=== PATIENT | male | born 1950 | race Caucasian/White ===

== ENCOUNTER 2024-05-20 08:26 | Inpatient (IN) | payer MEDICARE ==
[2024-05-20 08:39] LABS: Glucose,Whole Blood 168 mg/dL (70-110)
--- NOTE | 2024-05-20 08:54 | ED ---
Nausea/Vomiting/Diarrhea HPI - General Chief complaint: Nausea/Vomiting/Diarrhea Stated complaint: DKA Time Seen by Provider: 05/20/24 08:29 Source: patient, EMS, RN notes reviewed Mode of arrival: EMS Limitations: no limitations - History of Present Illness Initial comments: 73-year-old male presents emergency department via EMS from [place] as a t ransfer for DKA. Patient states has been sick over the last several days with nausea vomiting. He states that started after increasing his Mounjaro. Patient states that he has had several episodes of emesis just last 24 hours. He still has mild nausea. He was given fluid bolus, insulin drip at outside facility. Patient had a pH of 7.14, patient's current glucoses below 200. Patient states he does feel somewhat improved. He denies any chest pain palpitations headache or dizziness currently. Patient states he is very thirsty. He reports no fevers. - Related Data Allergies Allergy/AdvReac Type Severity Reaction Status Date / Time codeine Allergy Rash/Hives Verified 05/20/24 08:41 Review of Systems ROS Statement: Those systems with pertinent positive or pertinent negative responses have been documented in the HPI. ROS Other: All systems not noted in ROS Statement are negative. Past Medical History Past Medical History: Diabetes Mellitus, Hyperlipidemia, Hypertension History of Any Multi-Drug Resistant Organisms: None Reported Past Surgical History: No Surgical Hx Reported Past Psychological History: No Psychological Hx Reported Smoking Status: Former smoker Past Alcohol Use History: Rare Past Drug Use History: None Reported General Exam Limitations: no limitations General appearance: alert, in no apparent distress Head exam: Present: atraumatic, normocephalic, normal inspection Eye exam: Present: normal appearance, PERRL, EOMI. Absent: scleral icterus, conjunctival injection, periorbital swelling ENT exam: Present: mucous membranes dry. Absent: normal exam, mucous membranes moist Neck exam: Present: normal inspection, full ROM. Absent: tenderness, meningismus, lymphadenopathy Respiratory exam: Present: normal lung sounds bilaterally. Absent: respiratory distress, wheezes, rales, rhonchi, stridor Cardiovascular Exam: Present: normal rhythm, tachycardia, normal heart sounds. Absent: systolic murmur, diastolic murmur, rubs, gallop, clicks GI/Abdominal exam: Present: soft, normal bowel sounds. Absent: distended, tenderness, guarding, rebound, rigid Neurological exam: Present: alert, oriented X3 Skin exam: Present: warm, dry, intact, normal color. Absent: rash Course Vital Signs 05/20/24 05/20/24 05/20/24 08:29 09:00 09:30 Temperature 98.0 F Pulse Rate 122 H 105 H Respiratory 18 18 18 Rate Blood Pressure 136/81 136/81 118/64 O2 Sat by Pulse 96 Oximetry 05/20/24 05/20/24 05/20/24 10:00 10:30 11:00 Temperature Pulse Rate 118 H 115 H 115 H Respiratory 18 18 18 Rate Blood Pressure 104/72 110/71 108/72 O2 Sat by Pulse Oximetry 05/20/24 11:30 Temperature Pulse Rate 106 H Respiratory 18 Rate Blood Pressure 91/68 O2 Sat by Pulse Oximetry Medical Decision Making - Medical Decision Making Was pt. sent in by a medical professional or institution (, PA, SUPERVISOR MIXING, urgent care, hospital, or fci...) When possible be specific @ -[facility] Did you speak to anyone other than the patient for history (EMS, parent, family, police, friend...)? What history was obtained from this source @ -No Did you review nursing and triage notes (agree or disagree)? Why? @ -I reviewed and agree with nursing and triage notes Were old charts reviewed (outside hosp., previous admission, EMS record, old EKG, old radiological studies, urgent care reports/EKG's, fci records)? Report findings @ -Reviewed labs from outpatient hospital Differential Diagnosis (chest pain, altered mental status, abdominal pain women, abdominal pain men, vaginal bleeding, weakness, fever, dyspnea, syncope, headache, dizziness, GI bleed, back pain, seizure, CVA, palpatations, mental health, musculoskeletal)? @ -Hyperglycemia, DKA, HHS, nausea vomiting EKG interpreted by me (3pts min.). @ -As above X-rays interpreted by me (1pt min.). @ -None done CT interpreted by me (1pt min.). @ -None done U/S interpreted by me (1pt. min.). @ -None done What testing was considered but not performed or refused? (CT, X-rays, U/S, labs)? Why? @ -None What meds were considered but not given or refused? Why? @ -None Did you discuss the management of the patient with other professionals (yaritza valeriofessmagalys i.e. , PA, SUPERVISOR MIXING, lab, RT, psych nurse, social media senior associate, wet primer powder blender, teacher, air defence officer, foster care case manager)? Give summary @ -Sound physician for admission Was smoking cessation discussed for >3mins.? @ -No Was critical care preformed (if so, how long)? @ -35 mins Were there social determinants of health that impacted care today? How? (Homelessness, low income, unemployed, alcoholism, drug addiction, transportation, low edu. Level, literacy, decrease access to med. care, senior care, rehab)? @ -No Was there de-escalation of care discussed even if they declined (Discuss DNR or withdrawal of care, Hospice)? DNR status @ -No What co-morbidities impacted this encounter? (DM, HTN, Smoking, COPD, CAD, Cancer, CVA, ARF, Chemo, Hep., AIDS, mental health diagnosis, sleep apnea, morbid obesity)? @ -Diabetes Was patient admitted / discharged? Hospital course, mention meds given and route, prescriptions, significant lab abnormalities, going to OR and other pertinent info. @ -Admitted patient presented from outside hospital for DKA. Patient had blood gases 7.14 acetone positive with hyperglycemia started on DKA protocol. Patient will continue on insulin, maintenance fluids and repeat laboratory studies every 4 hours. Undiagnosed new problem with uncertain prognosis? @ -No Drug Therapy requiring intensive monitoring for toxicity (Heparin, Nitro, Insulin, Cardizem)? @ -No Were any procedures done? @ -No Diagnosis/symptom? @ -DKA, nausea vomiting Acute, or Chronic, or Acute on Chronic? @ -Acute Uncomplicated (without systemic symptoms) or Complicated (systemic symptoms)? @ -Complicated Side effects of treatment? @ -No Exacerbation, Progression, or Severe Exacerbation? @ -No Poses a threat to life or bodily function? How? (Chest pain, [place], [place], pneumonia, PE, COPD, DKA, ARF, appy, cholecystitis, CVA, Diverticulitis, Homicidal, Suicidal, threat to staff... and all critical care pts) @ -Yes DKA - Lab Data Result diagrams: 05/20/24 09:27 05/20/24 11:11 Lab Results 05/20/24 05/20/24 05/20/24 Range/Units 08:37 09:27 09:27 WBC 18.6 H (3.8-10.6) k/uL RBC 5.06 (4.30-5.90) m/uL Hgb 15.8 (13.0-17.5) gm/dL Hct 51.5 (39.0-53.0) % MCV 101.8 H (80.0-100.0) fL MCH 31.2 (25.0-35.0) pg MCHC 30.7 L (31.0-37.0) g/dL RDW 13.0 (11.5-15.5) % Plt Count 264 (150-450) k/uL MPV 9.5 Neutrophils % (Manual) 79 % Band Neuts % (Manual) 3 % Lymphocytes % (Manual) 7 % Monocytes % (Manual) 6 % Eosinophils % (Manual) 3 % Metamyelocytes % 3 % Neutrophils # (Manual) 15.20 H (1.3-7.7) k/uL Lymphocytes # (Manual) 1.30 (1.0-4.8) k/uL Monocytes # (Manual) 1.12 H (0-1.0) k/uL Eosinophils # (Manual) 0.56 (0-0.7) k/uL Metamyelocytes # (Man) 0.56 H (0) k/uL Nucleated RBCs 0 (0-0) /100 WBC Manual Slide Review Performed Hypochromasia Slight Macrocytosis Slight Sodium 117 L* (137-145) mmol/L Potassium 10.4 H* (3.5-5.1) mmol/L Chloride 105 (98-107) mmol/L Carbon Dioxide 10 L (22-30) mmol/L Anion Gap 2 mmol/L BUN 11 (9-20) mg/dL Creatinine 0.69 (0.66-1.25) mg/dL Est GFR (CKD-EPI)AfAm >90 (>60 ml/min/1.73 sqM) Est GFR (CKD-EPI)NonAf >90 (>60 ml/min/1.73 sqM) Glucose 1245 H* (74-99) mg/dL POC Glucose (mg/dL) 168 H (70-110) mg/dL POC Glu Quencher Operator ID Leon Eden Calcium 5.3 L* (8.4-10.2) mg/dL Total Bilirubin 0.2 (0.2-1.3) mg/dL AST 10 L (17-59) U/L ALT 6 (4-49) U/L Alkaline Phosphatase 43 (38-126) U/L Total Protein 3.0 L (6.3-8.2) g/dL Albumin 1.5 L (3.5-5.0) g/dL 05/20/24 05/20/24 05/20/24 Range/Units 09:52 11:08 11:11 WBC (3.8-10.6) k/uL RBC (4.30-5.90) m/uL Hgb (13.0-17.5) gm/dL Hct (39.0-53.0) % MCV (80.0-100.0) fL MCH (25.0-35.0) pg MCHC (31.0-37.0) g/dL RDW (11.5-15.5) % Plt Count (150-450) k/uL MPV Neutrophils % (Manual) % Band Neuts % (Manual) % Lymphocytes % (Manual) % Monocytes % (Manual) % Eosinophils % (Manual) % Metamyelocytes % % Neutrophils # (Manual) (1.3-7.7) k/uL Lymphocytes # (Manual) (1.0-4.8) k/uL Monocytes # (Manual) (0-1.0) k/uL Eosinophils # (Manual) (0-0.7) k/uL Metamyelocytes # (Man) (0) k/uL Nucleated RBCs (0-0) /100 WBC Manual Slide Review Hypochromasia Macrocytosis Sodium 134 L (137-145) mmol/L Potassium 3.9 (3.5-5.1) mmol/L Chloride 105 (98-107) mmol/L Carbon Dioxide 21 L (22-30) mmol/L Anion Gap 8 mmol/L BUN 16 (9-20) mg/dL Creatinine 0.98 (0.66-1.25) mg/dL Est GFR (CKD-EPI)AfAm >90 (>60 ml/min/1.73 sqM) Est GFR (CKD-EPI)NonAf 78 (>60 ml/min/1.73 sqM) Glucose 223 H (74-99) mg/dL POC Glucose (mg/dL) 203 H 195 H (70-110) mg/dL POC Glu Quencher Operator ID Leon Olivo Calcium 8.5 (8.4-10.2) mg/dL Total Bilirubin (0.2-1.3) mg/dL AST (17-59) U/L ALT (4-49) U/L Alkaline Phosphatase (38-126) U/L Total Protein (6.3-8.2) g/dL Albumin (3.5-5.0) g/dL - EKG Data -: EKG Interpreted by Me EKG Comments: EKG performed at 11: 05 sinus tachycardia rate of 114 [place] 139 QRS 88 QT/QTc 349/ 416 oh Critical Care Time Critical Care Time: Yes Total Critical Care Time: 35 Disposition Clinical Impression: DKA (diabetic ketoacidosis), Nausea & vomiting Disposition: ADMITTED IP TO THIS HOSP Referrals: Aleksandar Allen MD [Primary Care Provider] - 1-2 days Time of Disposition: 11:59
[2024-05-20] MEDS: ONDANSETRON 4 MG/2 ML VIAL IVP STA (09:09)
[2024-05-20] MEDS: INSULIN REGULAR 100 UNIT in SODIUM CHLORIDE 0.9% 100 ML IV SCH (09:10)
[2024-05-20] MEDS: D5-0.45% NACL WITH KCL 20MEQ/L 1,000 ML IV SCH (09:20)
[2024-05-20 09:53] LABS: Glucose,Whole Blood 203 mg/dL (70-110)
[2024-05-20 09:58] LABS: HCT 51.5 % (39.0-53.0); HGB 15.8 gm/dL (13.0-17.5); Hypochromasia Slight; MCH 31.2 pg (25.0-35.0); MCHC 30.7 g/dL (31.0-37.0); MCV 101.8 fL (80.0-100.0); Macrocytosis Slight; Mean Platelet Volume 9.5; Platelet Count 264 k/uL (150-450); RBC 5.06 m/uL (4.30-5.90); WBC 18.6 k/uL (3.8-10.6)
[2024-05-20 10:13] LABS: ALT 6 U/L (4-49); AST 10 U/L (17-59); African American GFR (CKD) >90 (>60 ml/min/1.73 sqM); Albumin 1.5 g/dL (3.5-5.0); Alkaline Phosphatase 43 U/L (38-126); Anion Gap 2 mmol/L; Blood Urea Nitrogen 11 mg/dL (9-20); Carbon Dioxide 10 mmol/L (22-30); Chloride 105 mmol/L (98-107); Non-African American GFR(CKD) >90 (>60 ml/min/1.73 sqM); Total Bilirubin 0.2 mg/dL (0.2-1.3)
[2024-05-20] MEDS: METOCLOPRAMIDE 5 MG/ML 2 ML VIAL IVP STA (10:28)
[2024-05-20 10:44] LABS: Band Neutrophils % 3 %; Eosinophils # (M) 0.56 k/uL (0-0.7); Metamyelocytes # (M) 0.56 k/uL (0); Metamyelocytes % 3 %; Monocytes # (M) 1.12 k/uL (0-1.0); Neutrophils % (M) 79 %; Nucleated Red Blood Cells 0 /100 WBC (0-0); Total Cells Counted 200
[2024-05-20 10:53] LABS: Calcium 5.3 mg/dL (8.4-10.2); Potassium 10.4 mmol/L (3.5-5.1); Sodium 117 mmol/L (137-145)
[2024-05-20 10:54] LABS: Glucose 1245 mg/dL (74-99)
[2024-05-20 11:12] LABS: Glucose,Whole Blood 195 mg/dL (70-110)
[2024-05-20 11:45] LABS: African American GFR (CKD) >90 (>60 ml/min/1.73 sqM); Anion Gap 8 mmol/L; Blood Urea Nitrogen 16 mg/dL (9-20); Calcium 8.5 mg/dL (8.4-10.2); Carbon Dioxide 21 mmol/L (22-30); Chloride 105 mmol/L (98-107); Glucose 223 mg/dL (74-99); Non-African American GFR(CKD) 78 (>60 ml/min/1.73 sqM); Potassium 3.9 mmol/L (3.5-5.1); Sodium 134 mmol/L (137-145)
[2024-05-20 12:35] LABS: Glucose,Whole Blood 199 mg/dL (70-110)
[2024-05-20 13:36] LABS: African American GFR (CKD) 86 (>60 ml/min/1.73 sqM); Anion Gap 5 mmol/L; Blood Urea Nitrogen 17 mg/dL (9-20); Carbon Dioxide 22 mmol/L (22-30); Chloride 106 mmol/L (98-107); Glucose 206 mg/dL (74-99); Non-African American GFR(CKD) 75 (>60 ml/min/1.73 sqM); Potassium 3.7 mmol/L (3.5-5.1); Sodium 133 mmol/L (137-145)
[2024-05-20] MEDS: INSULIN NPH 100 UNIT/ML 10 ML VIAL SQ ONE (14:56)
[2024-05-20 14:57] LABS: Glucose,Whole Blood 156 mg/dL (70-110)
--- NOTE | 2024-05-20 15:24 | P.HPIM ---
History of Present Illness H&P Date: 05/20/24 Patient is a 73-year-old male with [id number] diabetes, hypertension and hyperlipidemia who came in from [facility] for nausea vomiting and diarrhea. Patient reported on Wednesday, he was given an injection of Mounjaro 0.5 mg by his PCP. On Thursday 05/17, he began to have nausea and vomiting with multiple episodes each day that was watery and contained undigested food. He also had associated nonbloody diarrhea. He denied fevers, chills, sweats, hematemesis, hematochezia, polyuria, dysuria, hematuria, shortness of breath, cough, chest pain, abdominal pain, recent travel, or recent sick contacts. On 05/18 he sought care in the [facility] emergency department and was given Zofran and Imodium and sent home. However his symptoms did not improve and his loose stools have increased in frequency. Today, he returned to their emergency department for reevaluation and was determined to have DKA which prompted transfer to our institution for higher level of care. In our ED, EKG shows ventricular tachycardia with a rate of [address]-T changes good R wave progression QTc at 416 MS. Labs from [facility], show glucose 369 BUN 17 creatinine 1.2 anion gap elevated at 28 calcium 9.4 sodium 134 potassium 3.6 chloride 99 albumin 3.6 serum acetone positive lipase low at 11 WBC elevated at 15.4 hemoglobin elevated at 19.2 hematocrit elevated at 15.6 platelets 278,000. Urinalysis shows plus for ketones large acetones trace blood 1-2 RBCs negative leukocyte esterase. Influenza, RSV, and COVID were negative venous blood pH is 7.16 which is decreased. Labs from our ED, show WBC 18.6 hemoglobin 15.8 MCV 101.8 platelet count 264,000 sodium 134 potassium 3.9 chloride 105 bicarb 21 anion gap 8 BUN 16 creatinine 0.98 glucose 273 calcium 8.5 phosphorus 2.8 On admission to our ED, patient was afebrile at 98 pulse rate 122 respiratory rate 18 blood pressure 136/81 oxygen saturation 96% at room air Review of systems: Pertinent positives and negatives as discussed in HPI, a complete review of systems was performed and all other systems are negative. Physical examination: Vital signs reviewed General: non toxic, no distress Derm: no unusual rashes/lesions, warm Head: atraumatic, normocephalic, symmetric Eyes: EOMI, anicteric sclera, pupils equal round reactive to light ENT: Nose and ears atraumatic Neck: No cervical lymphadenopathy, trachea midline, supple Mouth: no lip lesion, mucus membranes somewhat dry Cardiovascular: S1S2 reg, no murmur Lungs: CTA bilateral, no rhonchi, no rales, no accessory muscle use Abdominal: soft, nondistended, nontender to palpation, no guarding Ext: no gross muscle atrophy, no contractures, positive dorsalis pedis pulse bilateral, no extremity edema Neuro: CN II-XI grossly intact, no gross focal neuro deficits Psych: Alert and oriented x 3, appropriate affect and mood Assessment/Plan: 73-year-old male with [id number] diabetes (on Mounjaro) transferred from [facility] transferred here for higher level of care. #. Diabetic ketoacidosis #. Pseudohyponatremia #. Leukocytosis likely reactive due to above r/o infection IV insulin and D5 half-normal saline at 150 cc/h initiated in the ED Per protocol, continue IV insulin until anion gap is is normal. Transition to subcutaneous insulin after 1 hour Zofran 4 mg IVP and Reglan 10 mg IVP for nausea WBC elevated at 18.6 neutrophils elevated at 15.2 Accu-Chek checks hourly BMP and Phos every 4 hours Blood cultures from 2 sites CBC and BMP in the a.m. Cardiac monitoring Chronic Conditions: #. Hypertension #. Hyperlipidemia Resume Lipitor 10 mg p.o. and lisinopril 20 mg p.o., F: D5 half-normal saline at 150 cc E: Replete as needed N: N.p.o. for now A: Can ambulate independently DVT ppx: Lovenox 40 mg SQ daily Dispo: The patient is admitted with an anticipated less than 2 midnight stay for evaluation of DKA Discussed with: Patient and patient's Anticipated discharge place: Home Vivi Lincoln MD PGY-1 IM Dictation was produced using [employer] dictation software. please excuse any grammatical, word or spelling errors. I have seen and evaluated the patient today. Discussed with the resident and agree with the residents finding and plan as documented in the resident's note. Changes highlighted in blue font. Past Medical History Past Medical History: Diabetes Mellitus, Hyperlipidemia, Hypertension History of Any Multi-Drug Resistant Organisms: None Reported Past Surgical History: No Surgical Hx Reported Past Psychological History: No Psychological Hx Reported Smoking Status: Former smoker Past Alcohol Use History: Rare Past Drug Use History: None Reported Medications and Allergies Home Medications Medication Instructions Recorded Confirmed Type Ondansetron Odt [Zofran Odt] 4 mg PO Q4-6H PRN 05/20/24 05/20/24 History Simvastatin [Zocor] 20 mg PO HS 05/20/24 05/20/24 History glipiZIDE [Glucotrol] 10 mg PO HS 05/20/24 05/20/24 History lisinopriL [Zestril] 20 mg PO HS 05/20/24 05/20/24 History metFORMIN HCL 1,000 mg PO BID 05/20/24 05/20/24 History Allergies Allergy/AdvReac Type Severity Reaction Status Date / Time codeine Allergy Rash/Hives/ Verified 05/20/24 13:42 Nausea/Vomi ting Physical Exam Vitals: Vital Signs Temp Pulse Resp BP Pulse Ox 05/20/24 11:30 106 H 18 91/68 05/20/24 11:00 115 H 18 108/72 05/20/24 10:30 115 H 18 110/71 05/20/24 10:00 118 H 18 104/72 05/20/24 09:30 105 H 18 118/64 05/20/24 09:00 18 136/81 05/20/24 08:29 98.0 F 122 H 18 136/81 96 Intake and Output 05/19/24 05/20/24 05/20/24 22:59 06:59 14:59 Other: Weight 81.647 kg Results CBC & Chem 7: 05/20/24 09:27 05/20/24 12:29 Labs: Abnormal Lab Results - Last 24 Hours (Table) 05/20/24 05/20/24 05/20/24 Range/Units 08:37 09:27 09:27 WBC 18.6 H (3.8-10.6) k/uL MCV 101.8 H (80.0-100.0) fL MCHC 30.7 L (31.0-37.0) g/dL Neutrophils # (Manual) 15.20 H (1.3-7.7) k/uL Monocytes # (Manual) 1.12 H (0-1.0) k/uL Metamyelocytes # (Man) 0.56 H (0) k/uL Sodium 117 L* (137-145) mmol/L Potassium 10.4 H* (3.5-5.1) mmol/L Carbon Dioxide 10 L (22-30) mmol/L Glucose 1245 H* (74-99) mg/dL POC Glucose (mg/dL) 168 H (70-110) mg/dL Calcium 5.3 L* (8.4-10.2) mg/dL AST 10 L (17-59) U/L Total Protein 3.0 L (6.3-8.2) g/dL Albumin 1.5 L (3.5-5.0) g/dL 05/20/24 05/20/24 05/20/24 Range/Units 09:52 11:08 11:11 WBC (3.8-10.6) k/uL MCV (80.0-100.0) fL MCHC (31.0-37.0) g/dL Neutrophils # (Manual) (1.3-7.7) k/uL Monocytes # (Manual) (0-1.0) k/uL Metamyelocytes # (Man) (0) k/uL Sodium 134 L (137-145) mmol/L Potassium (3.5-5.1) mmol/L Carbon Dioxide 21 L (22-30) mmol/L Glucose 223 H (74-99) mg/dL POC Glucose (mg/dL) 203 H 195 H (70-110) mg/dL Calcium (8.4-10.2) mg/dL AST (17-59) U/L Total Protein (6.3-8.2) g/dL Albumin (3.5-5.0) g/dL
[2024-05-20 16:17] LABS: Glucose,Whole Blood 124 mg/dL (70-110)
[2024-05-20 17:23] LABS: Glucose,Whole Blood 134 mg/dL (70-110)
[2024-05-20 17:28] LABS: African American GFR (CKD) >90 (>60 ml/min/1.73 sqM); Anion Gap 9 mmol/L; Blood Urea Nitrogen 15 mg/dL (9-20); Carbon Dioxide 19 mmol/L (22-30); Chloride 107 mmol/L (98-107); Glucose 113 mg/dL (74-99); Non-African American GFR(CKD) 87 (>60 ml/min/1.73 sqM); Potassium 3.8 mmol/L (3.5-5.1); Sodium 135 mmol/L (137-145)
[2024-05-20] MEDS: INSULIN ASPART (NovoLOG) 100 UNIT/ML VIAL SQ SCH (17:43)
[2024-05-20] MEDS: ATORVASTATIN 10 MG TAB PO SCH (20:28)
[2024-05-20] MEDS: lisinopriL 20 MG TAB PO SCH (20:28)
[2024-05-20 20:42] LABS: Glucose,Whole Blood 209 mg/dL (70-110)
[2024-05-20] MEDS: INSULIN DETEMIR (LEVEMIR) 100 UNIT/ML SYR SQ SCH (20:53)
[2024-05-20 21:31] VITALS: RESP 18
[2024-05-20] MEDS: ONDANSETRON 4 MG/2 ML VIAL IVP PRN (23:28)
[2024-05-21 01:56] LABS: Glucose,Whole Blood 145 mg/dL (70-110)
[2024-05-21 06:18] LABS: Glucose,Whole Blood 121 mg/dL (70-110)
[2024-05-21 11:04] LABS: African American GFR (CKD) 65 (>60 ml/min/1.73 sqM); Anion Gap 8 mmol/L; Blood Urea Nitrogen 18 mg/dL (9-20); Calcium 8.8 mg/dL (8.4-10.2); Carbon Dioxide 22 mmol/L (22-30); Chloride 103 mmol/L (98-107); Glucose 242 mg/dL (74-99); Non-African American GFR(CKD) 56 (>60 ml/min/1.73 sqM); Potassium 3.5 mmol/L (3.5-5.1); Sodium 133 mmol/L (137-145)
[2024-05-21 11:22] LABS: Glucose,Whole Blood 235 mg/dL (70-110)
[2024-05-21 11:52] LABS: HCT 51.9 % (39.0-53.0); HGB 17.5 gm/dL (13.0-17.5); MCHC 33.6 g/dL (31.0-37.0); Mean Platelet Volume 8.8; Platelet Count 312 k/uL (150-450); RBC 5.46 m/uL (4.30-5.90); RDW 12.8 % (11.5-15.5); WBC 18.2 k/uL (3.8-10.6)
[2024-05-21 12:02] LABS: MCV 95.2 fL (80.0-100.0)
[2024-05-21 13:36] LABS: Eosinophils # (M) 1.82 k/uL (0-0.7); Lymphocytes # (M) 5.46 k/uL (1.0-4.8); Monocytes # (M) 0.36 k/uL (0-1.0); Neutrophils # (M) 10.92 k/uL (1.3-7.7); Neutrophils % (M) 60 %; Nucleated Red Blood Cells 0 /100 WBC (0-0); Total Cells Counted 200
[2024-05-21 13:43] LABS: Toxic Vacuolation Present
[2024-05-21 13:45] LABS: RBC Morphology Normal
--- NOTE | 2024-05-21 14:52 | P.PN ---
Subjective Progress Note Date: 05/21/24 Subjective: Patient seen and examined at bedside. No acute events overnight. Denies any further nausea. Able to tolerate oral intake. Pertinent positives and negatives as discussed above, a complete review of systems was performed and all other systems are negative. Vitals Signs Reviewed. General: Nontoxic, no distress, appears at stated age Derm: Warm, dry Head: Atraumatic, normocephalic, symmetric Eyes: EOMI, no lid lag, anicteric sclera Mouth: No lip lesion, mucus membranes moist Cardiovascular: S1S2 reg, no murmur Lungs: CTA bilateral, no rhonchi, no rales, no accessory muscle use Abdominal: Soft, nontender to palpation, no guarding, no appreciable organomegaly Ext: No gross muscle atrophy, no edema, no contractures Neuro: CN II-XI grossly intact, no focal neuro deficits Psych: Alert, oriented, appropriate affect Data Reviewed Today: Pertinent Labs: WBC 18.2, neutrophilic predominant, sodium 133, creatinine 1.28, blood sugars range between 1 21-2 42, A1c 9.7 Imaging: No new imaging Assessment and Plan: Active: Diabetic ketoacidosis, resolved Uncontrolled type 2 diabetes, A1c 9.7 Leukocytosis INÉS, prerenal -Continue Levemir 24 units nightly, sliding scale insulin, monitor for hypoglycemia -Cultures negative growth to date -Repeat CBC and BMP tomorrow, if improved, patient likely be discharged -Due to high A1c, patient would likely benefit from insulin outpatient Chronic: Dyslipidemia Hypertension DVT ppx: Lovenox Code status: Full code Anticipated discharge place: Pending clinical course Anticipated discharge time: Pending clinical course Objective - Vital Signs Vital signs: Vital Signs Temp 97.9 F 05/21/24 08:00 Pulse 107 H 05/21/24 14:00 Resp 18 05/21/24 14:00 BP 124/69 05/21/24 11:45 Pulse Ox 99 05/21/24 11:45 FiO2 Intake & Output 05/20/24 05/21/24 05/21/24 18:59 06:59 18:59 Intake Total 40.886 260 Output Total 0 Balance 40.886 260 Weight 81.647 kg 74.1 kg Intake: IV 20 Invasive Line 1 20 Intake, IV Titration 40.886 Amount Insulin Regular 100 unit 40.886 In Sodium Chloride 0.9% 100 ml @ 0.05 UNITS/KG/HR 4.123 mls/hr IV .Q24H [facility] Rx#:[id number] Oral 240 Output: Urine 0 Other: Voiding Method Toilet Toilet # Voids 2 1 - Labs CBC & Chem 7: 05/21/24 10:21 05/21/24 10:21 Labs: Abnormal Lab Results - Last 24 Hours (Table) 05/20/24 05/20/24 05/20/24 Range/Units 09:27 14:55 16:15 WBC (3.8-10.6) k/uL Neutrophils # (Manual) (1.3-7.7) k/uL Lymphocytes # (Manual) (1.0-4.8) k/uL Eosinophils # (Manual) (0-0.7) k/uL Sodium (137-145) mmol/L Carbon Dioxide (22-30) mmol/L Creatinine (0.66-1.25) mg/dL Glucose (74-99) mg/dL POC Glucose (mg/dL) 156 H 124 H (70-110) mg/dL Hemoglobin A1c 9.7 H (<=6.0) % Phosphorus (2.5-4.5) mg/dL 05/20/24 05/20/24 05/20/24 Range/Units 16:20 16:20 17:22 WBC (3.8-10.6) k/uL Neutrophils # (Manual) (1.3-7.7) k/uL Lymphocytes # (Manual) (1.0-4.8) k/uL Eosinophils # (Manual) (0-0.7) k/uL Sodium 135 L (137-145) mmol/L Carbon Dioxide 19 L (22-30) mmol/L Creatinine (0.66-1.25) mg/dL Glucose 113 H (74-99) mg/dL POC Glucose (mg/dL) 134 H (70-110) mg/dL Hemoglobin A1c (<=6.0) % Phosphorus 2.4 L (2.5-4.5) mg/dL 05/20/24 05/21/24 05/21/24 Range/Units 20:41 01:55 06:17 WBC (3.8-10.6) k/uL Neutrophils # (Manual) (1.3-7.7) k/uL Lymphocytes # (Manual) (1.0-4.8) k/uL Eosinophils # (Manual) (0-0.7) k/uL Sodium (137-145) mmol/L Carbon Dioxide (22-30) mmol/L Creatinine (0.66-1.25) mg/dL Glucose (74-99) mg/dL POC Glucose (mg/dL) 209 H 145 H 121 H (70-110) mg/dL Hemoglobin A1c (<=6.0) % Phosphorus (2.5-4.5) mg/dL 05/21/24 05/21/24 05/21/24 Range/Units 10:21 10:21 11:21 WBC 18.2 H (3.8-10.6) k/uL Neutrophils # (Manual) 10.92 H (1.3-7.7) k/uL Lymphocytes # (Manual) 5.46 H (1.0-4.8) k/uL Eosinophils # (Manual) 1.82 H (0-0.7) k/uL Sodium 133 L (137-145) mmol/L Carbon Dioxide (22-30) mmol/L Creatinine 1.28 H (0.66-1.25) mg/dL Glucose 242 H (74-99) mg/dL POC Glucose (mg/dL) 235 H (70-110) mg/dL Hemoglobin A1c (<=6.0) % Phosphorus (2.5-4.5) mg/dL
[2024-05-21 16:22] LABS: Glucose,Whole Blood 186 mg/dL (70-110)
[2024-05-21 20:10] LABS: Glucose,Whole Blood 200 mg/dL (70-110)
[2024-05-22 02:00] LABS: Glucose,Whole Blood 141 mg/dL (70-110)
[2024-05-22 06:07] LABS: Glucose,Whole Blood 137 mg/dL (70-110)
[2024-05-22 07:40] LABS: Basophils # (A) 0.1 k/uL (0-0.2); Basophils % (A) 1 %; Eosinophils # (A) 0.9 k/uL (0-0.7); Eosinophils % (A) 7 %; HCT 49.7 % (39.0-53.0); HGB 16.7 gm/dL (13.0-17.5); Lymphocytes # (A) 2.2 k/uL (1.0-4.8); Lymphocytes % (A) 18 %; MCH 31.8 pg (25.0-35.0); MCHC 33.6 g/dL (31.0-37.0); MCV 94.5 fL (80.0-100.0); Mean Platelet Volume 7.5; Monocytes # (A) 0.9 k/uL (0-1.0); Monocytes % (A) 7 %; Neutrophils # (A) 8.3 k/uL (1.3-7.7); Neutrophils % (A) 66 %; Platelet Count 269 k/uL (150-450); RBC 5.26 m/uL (4.30-5.90); RDW 12.6 % (11.5-15.5); WBC 12.7 k/uL (3.8-10.6)
[2024-05-22 07:58] LABS: African American GFR (CKD) >90 (>60 ml/min/1.73 sqM); Anion Gap 6 mmol/L; Blood Urea Nitrogen 13 mg/dL (9-20); Calcium 8.8 mg/dL (8.4-10.2); Carbon Dioxide 22 mmol/L (22-30); Chloride 106 mmol/L (98-107); Glucose 134 mg/dL (74-99); Non-African American GFR(CKD) 85 (>60 ml/min/1.73 sqM); Potassium 3.2 mmol/L (3.5-5.1); Sodium 134 mmol/L (137-145)
[2024-05-22 08:51] VITALS: BP 108/63; PULSE 94; TEMP 98.3
[2024-05-22 10:41] VITALS: BMI 23.3
[2024-05-22 10:52] LABS: RBC Morphology Normal
[2024-05-22] MEDS: POTASSIUM CHLORIDE ER 20 MEQ TAB.ER PO STA (10:58)
--- NOTE | 2024-05-22 13:38 | P.DS ---
Providers Date of admission: 05/20/24 10:08 Expected date of discharge: 05/22/24 Attending physician: Napoleon Vega Primary care physician: Aleksandar Allen [facility] Hospital Course: Final Diagnosis: #. Diabetic ketoacidosis, resolved #. Leukocytosis #. Suspected viral gastroenteritis #. Hypertension #. Hyperlipidemia #. Hypokalemia Hospital Course: Patient is a 73-year-old male with abh-[id number] diabetes, hypertension and hyperlipidemia who came in from [facility] for nausea vomiting and diarrhea. Patient reported on Wednesday, he was given an injection of Moun jaro 0.5 mg by his PCP. On Thursday 05/17, he began to have nausea and vomiting with multiple episodes each day that was watery and contained undigested food. He also had associated nonbloody diarrhea. He denied fevers, chills, sweats, hematemesis, hematochezia, polyuria, dysuria, hematuria, shortness of breath, cough, chest pain, abdominal pain, recent travel, or recent sick contacts. On 05/18 he sought care in the [facility] emergency department and was given Zofran and Imodium and sent home. However his symptoms did not improve and his loose stools have increased in frequency. Today, he returned to their emergency department for reevaluation and was determined to have DKA which prompted transfer to our institution for higher level of care. In our ED, EKG shows ventricular tachycardia with a rate of [address]-T changes good R wave progression QTc at 416 MS. Labs from [facility], show glucose 369 BUN 17 creatinine 1.2 anion gap elevated at 28 calcium 9.4 sodium 134 potassium 3.6 chloride 99 albumin 3.6 serum acetone positive lipase low at 11 WBC elevated at 15.4 hemoglobin elevated at 19.2 hematocrit elevated at 15.6 platelets 278,000. Urinalysis shows plus for ketones large acetones trace blood 1-2 RBCs negative leukocyte esterase. Influenza, RSV, and COVID were negative venous blood pH is 7.16 which is decreased. Labs from our ED, show WBC 18.6 hemoglobin 15.8 MCV 101.8 platelet count 264,000 sodium 134 potassium 3.9 chloride 105 bicarb 21 anion gap 8 BUN 16 creatinine 0.98 glucose 273 calcium 8.5 phosphorus 2.8 On admission to our ED, patient was afebrile at 98 pulse rate 122 respiratory rate 18 blood pressure 136/81 oxygen saturation 96% at room air Patient was evaluated in our facility for higher level of care of diabetic ketoacidosis and leukocytosis. Patient placed on IV insulin and IV [id number] saline. Patient transition to subcutaneous insulin 05/20 in the afternoon. HbA1c was elevated at 9.7. Patient symptoms improved and was able to tolerate oral intake a day after admission. Leukocytosis also decreased in trend throughout hospital stay. Potassium on 05/22 was 3.2. Patient was given potassium 40 mEq p.o. for repletion. Patient is cleared to discharge today and is prescribed alogliptin 6.25 mg p.o. He is also advised to continue metformin 1000 mg p.o. and glipizide 10 mg p.o. for hyperglycemic control and to follow-up with PCP for reevaluation of diabetes medication regimen. Physical examination: General: non toxic, no distress, appears at stated age Derm: no unusual rashes/lesions, warm Head: atraumatic, normocephalic, symmetric Eyes: EOMI, anicteric sclera, pupils equal round reactive to light ENT: Nose and ears atraumatic Neck: No cervical lymphadenopathy, trachea midline, supple Mouth: no lip lesion, mucus membranes moist Cardiovascular: S1S2 reg, no murmur, Lungs: CTA bilateral, no rhonchi, no rales, no accessory muscle use Abdominal: soft, nondistended, nontender to palpation, no guarding Ext: muscle strength 5 out of 5 in all 4 extremities grossly, no gross muscle atrophy, no contractures, positive dorsalis pedis pulse bilateral, no extremity edema Neuro: CN II-XI grossly intact, no gross focal neuro deficits Psych: Alert, oriented, appropriate affect and mood A total of 36 minutes of time were spent preparing this complex discharge summary. Patient was discharged on 05/22/24 at 949. I have seen and evaluated the patient today. Discussed with the resident and agree with the residents finding and plan as documented in the resident's note. Changes highlighted in blue font. Patient Condition at Discharge: Good Plan - Discharge Summary Discharge Rx Participant: No New Discharge Prescriptions: New Alogliptin Benzoate [Alogliptin] 6.25 mg PO DAILY #30 tablet Continue lisinopriL [Zestril] 20 mg PO HS Ondansetron Odt [Zofran ODT] 4 mg PO Q4-6H PRN PRN Reason: Nausea And Vomiting glipiZIDE [Glucotrol] 10 mg PO HS Simvastatin [Zocor] 20 mg PO HS metFORMIN HCL 1,000 mg PO BID Discharge Medication List Ondansetron Odt [Zofran ODT] 4 mg PO Q4-6H PRN 05/20/24 [History] Simvastatin [Zocor] 20 mg PO HS 05/20/24 [History] glipiZIDE [Glucotrol] 10 mg PO HS 05/20/24 [History] lisinopriL [Zestril] 20 mg PO HS 05/20/24 [History] metFORMIN HCL 1,000 mg PO BID 05/20/24 [History] Alogliptin Benzoate [Alogliptin] 6.25 mg PO DAILY #30 tablet 05/22/24 [Rx] Follow up Appointment(s)/Referral(s): Aleksandar Allen MD [Primary Care Provider] - 05/24/24 11:00 am Patient Instructions/Handouts: Diabetic Ketoacidosis (DC) Activity/Diet/Wound Care/Special Instructions: Please see your PCP Discharge Disposition: HOME SELF-CARE
== END 2024-05-22 12:31 | disposition home or self-care (01) | DRG 638 ==
LOC: EC 08:26 → SUPCPDRO 08:26 → 3SCARD 10:08
PROVIDERS: ADMIT Student in an Organized Health Care Education/Training Program; ATTEND Student in an Organized Health Care Education/Training Program
DX: E11.10 Type 2 diabetes mellitus with ketoacidosis without coma (principal); I47.20 Ventricular tachycardia, unspecified; N17.9 Acute kidney failure, unspecified; D72.829 Elevated white blood cell count, unspecified; I10 Essential (primary) hypertension; E78.5 Hyperlipidemia, unspecified; E87.6 Hypokalemia; Z88.5 Allergy status to narcotic agent; Z87.891 Personal history of nicotine dependence; Z79.84 Long term (current) use of oral hypoglycemic drugs
CPT/HCPCS: 36415; 80048; 80051; 80053; 82565; 82947; 83036; 84100; 84520; 85025; 87040; 93005; 96365; 96366; 96375; 99291